=== PATIENT | male | born 1960 | race Caucasian/White ===

== ENCOUNTER → 2023-12-10 | Outpatient (CLI) | payer BC, MEDICARE ==
[~2023-12-10] MED LIST: GADOTERATE MEGLUMINE 10 MMOL/20 ML VIAL IV ONE
== END | disposition home or self-care (01) ==
LOC: RAH 08:07
PROVIDERS: ATTEND Family Medicine
DX: G31.9 Degenerative disease of nervous system, unspecified (principal); R41.3 Other amnesia; R90.82 White matter disease, unspecified
CPT/HCPCS: 70553; A9575

== ENCOUNTER 2025-01-04 06:50 | Day surgery (SDC) | payer BC, MEDICARE ==
[~2025-01-04] VITALS: Ht 180.3 cm; Wt 104.3 kg
[2025-01-04] VITALS (10 sets, daily range): BP systolic 127–165; BP diastolic 65–86; PULSE 55–65; RESP 14–19; TEMP 97–98
[~2025-01-04 06:50] MED LIST changes: -GADOTERATE MEGLUMINE 10 MMOL/20 ML VIAL IV ONE; +LOSA25TA41 PO; +OMEP10CA5 PO
[2025-01-04] MEDS: 0.9%NACL 1000ML 1,000 ML IV ONE (08:07)
[2025-01-04] MEDS ORDERED: proPOFol 10 MG/ML 20ML VIAL IV ONE (09:34)
--- NOTE | 2025-01-04 11:01 | NUR ---
FULL AND COMPLETE DISCHARGE INSTRUCTIONS GIVEN TO PATIENT AND FAMILY BOTH VERBALLY AND IN WRITING. VOICED UNDERSTANDING TO GI PROCEDURE PRECAUTIONS AND FOLLOW UP PIV REMOVED WITH CATHETER TIP INTACT. W/C WITH FAMILY TO POV TO HOME.
== END 2025-01-04 11:00 | disposition home or self-care (01) ==
LOC: ENDO 06:50 → DAH 06:50 → ENDO 11:00
PROVIDERS: ATTEND Internal Medicine Gastroenterology
DX: Z12.11 Encounter for screening for malignant neoplasm of colon (principal); K63.5 Polyp of colon; K64.1 Second degree hemorrhoids; K64.4 Residual hemorrhoidal skin tags; K62.89 Other specified diseases of anus and rectum; I10 Essential (primary) hypertension; R12 Heartburn; Z79.899 Other long term (current) drug therapy
CPT/HCPCS: 45385; J7030; J2704; A4620; A4215 ×2; A4223; A4222; A4221; A4663; A4606; J3490